=== PATIENT | male | born 1980 | race Caucasian/White ===

== ENCOUNTER 2023-01-01 16:06 | Emergency (ER) | payer MEDICAID ==
[~2023-01-01] VITALS: Ht 185.4 cm; Wt 93.0 kg
[2023-01-01] MEDS ORDERED: PERIDEX118 ML MM (17:05)
[2023-01-01] MEDS ORDERED: AMOXICILLIN500 M2 PO (17:05)
== END 2023-01-01 17:39 | disposition home or self-care (01) ==
LOC: ED 16:06
DX: K02.9 Dental caries, unspecified (principal); Z88.1 Allergy status to other antibiotic agents; Z87.891 Personal history of nicotine dependence

== ENCOUNTER 2023-01-29 20:10 | Emergency (ER) | payer MEDICAID ==
[~2023-01-29] VITALS: Ht 177.8 cm; Wt 93.0 kg
[~2023-01-29 20:10] MED LIST: AMOXICILLIN500 M2 PO; PERIDEX118 ML MM
[2023-01-29 20:32] LABS: BASO # 0.1 10*3/uL (0.0-0.1); BASO % 0.7 % (0.0-1.0); EOS # 0.2 10*3/uL (0.0-0.4); EOS % 1.9 % (1.0-4.0); HEMATOCRIT 45.7 % (42.0-52.0); LYMPH # 3.8 10*3/uL (1.3-4.4); LYMPH % 35.7 % (27.0-41.0); MEAN CELL VOLUME 85.4 fl (80.0-94.0); MEAN CORPUSCULAR HGB 28.4 pg (27.0-31.0); MEAN CORPUSCULAR HGB CONC 33.3 g/dl (33.0-37.0); MEAN PLATELET VOLUME 8.8 fl (9.6-12.3); MONO # 0.8 10*3/uL (0.1-1.0); MONO % 7.9 % (3.0-9.0); NEUT # 5.6 10*3/uL (2.3-7.9); NEUT % 53.3 % (47.0-73.0); PLATELET COUNT AUTOMATED 319 10*3/uL (130-400); RED BLOOD COUNT 5.35 10*6/uL (4.50-5.90); RED CELL DISTRI WIDTH 12.9 % (0-14.5); WHITE BLOOD COUNT 10.6 10*3/uL (4.8-10.8)
[2023-01-29 20:44] LABS: ACT PARTIAL THROMBO TIME 25.1 SECONDS (20.0-32.1); INTERNATIONAL NORM RATIO 0.9 (2.0-3.5)
[2023-01-29 20:49] LABS: ALKALINE PHOSPHATASE 98 U/L (46-116); BUN 11 mg/dl (9-23); CHLORIDE 104 mmol/L (98-107); POTASSIUM 3.7 mmol/L (3.4-5.1); SGPT/ALT 23 U/L (10-49); TOTAL PROTEIN 7.3 gm/dL (6.0-8.0)
== END 2023-01-29 23:10 | disposition left against medical advice (07) ==
LOC: ED 20:10
PROVIDERS: Emergency Medicine
DX: R07.9 Chest pain, unspecified (principal)

== ENCOUNTER 2025-03-03 15:54 | Emergency (ER) | payer MEDICAID ==
[~2025-03-03] VITALS: Ht 185.4 cm; Wt 93.0 kg
== END 2025-03-03 16:23 | disposition left against medical advice (07) ==
LOC: ED 15:54
DX: R07.89 Other chest pain (principal); Z79.899 Other long term (current) drug therapy; Z53.29 Procedure and treatment not carried out because of patient's decision for other reasons